=== PATIENT | female | born 1975 | race Two or more races ===

== ENCOUNTER 2023-05-12 18:23 | Emergency (ER) | payer MEDICAID, OTHER ==
[~2023-05-12] VITALS: Ht 167.6 cm; Wt 87.7 kg
[2023-05-12] MEDS ORDERED: ZOFR4T PO (21:19)
[2023-05-12 22:25] VITALS: BP 141/87; PULSE 87; RESP 20; TEMP 98.2; O2SAT 96
== END 2023-05-12 22:35 | disposition home or self-care (01) ==
LOC: EDBD 18:23 → ER 18:23
DX: R04.0 Epistaxis (principal); N18.6 End stage renal disease; Z99.2 Dependence on renal dialysis

== ENCOUNTER 2024-11-08 19:11 | Emergency (ER) | payer MEDICAID, MEDICARE ==
[~2024-11-08] VITALS: Ht 167.6 cm; Wt 90.0 kg
[~2024-11-08 19:11] MED LIST: ZOFR4T PO
[2024-11-08 19:16] VITALS: BP 132/73; PULSE 93; RESP 20; O2SAT 100
--- NOTE | 2024-11-08 20:18 | ED.PDOC ---
Back pain HPI HPI Comments 49-year-old Luxembourger-speaking female who presents with spouse for chief complaint of generalized body pain. Patient endorses a on 1 day history of symptoms following initial, unprovoked and atraumatic onset, yesterday, while at rest. Only significant history for diabetes, hypertension, and heart and kidney disease. Denies any numbness, tingling, chest pain, shortness of breath, or further associated symptoms. REVIEW OF SYSTEMS: General: No fever, no chills, or fatigue HEENT: No sore throat, no earache, no congestion, no neck pain. Cardiac: No chest pain. No palpitations. Lungs: No shortness of breath, no cough. GI: No nausea, no vomiting, no diarrhea, no constipation, no abdominal pain : No dysuria, frequency, or urgency. No hematuria. Musculoskeletal: Generalized body pain, no joint swelling, no extremity edema. Skin: No rash, no itching. Neuro: No headache, no dizziness, no weakness PHYSICAL EXAM: General: Awake, alert and oriented. No acute distress. Skin: Skin in warm, dry and intact. Appropriate color for ethnicity. HEENT: The head is normocephalic and atraumatic. Conjunctivae are clear without exudates or hemorrhage. Sclera is non-icteric. EOM are intact. No signs of nystagmus. Eyelids are normal in appearance without swelling or lesions. Oral mucosa is pink and moist Neck: The neck is supple with normal range of motion. No JVD. Cardiac: Heart rate and rhythm are normal. No murmurs, gallops, or rubs are auscultated. Respiratory: No signs of respiratory distress. Lung sounds are clear in all lobes bilaterally without rales, rhonchi, or wheezes. Abdominal: Abdomen is soft, non-tender without distention, guarding or rigidity. Bowel sounds are present and normoactive in all four quadrants. Musculoskeletal: Generalized tenderness. Extremities: Upper and lower extremities are atraumatic in appearance without deformity or edema. Neurological: The patient is awake, alert and oriented to person, place, and time with normal speech. Speech is clear. There is no facial asymmetry. Psychiatric: Appropriate mood and affect. Good judgement and insight. Chief Complaint: Body Pain Time Seen by MD: 20:00 Allergies: Coded Allergies: NO KNOWN ALLERGIES (Unverified , 05/12/23) Home Meds Active Scripts Ondansetron Odt 4MG Tab (ZOFRAN PO) 4 Mg Tb, 4 MG PO TID PRN, #10 TAB ODT TAB-DISSOLVE IN MOUTH, THEN SWALLOW Prov:BLAKE GUEVARA ROSE MARIE 05/12/23 Information Source: Patient Mode of Arrival: Wheelchair Past Medical History PAST MEDICAL HISTORY: DM, ESRD, HTN Past Medical History (Other): Unspecified heart and kidney disease. Surgical History: Denies all surgeries SOLUTION DEVELOPER History: No Pertinent SOLUTION DEVELOPER History Was a procedure done? Was a procedure done?: No Back Pain Differential Dx Differential Diagnosis: DJD, Fracture, Musculoskeletal Pain, Strain, Urolithiasis X-Ray, Labs, Meds, VS Vital Signs Date Time Temp Pulse Resp B/P (MAP) Pulse Ox O2 Delivery O2 Flow Rate FiO2 11/08/24 23:18 98.7 11/08/24 23:18 97.8 11/08/24 19:16 98.9 93 20 132/73 100 98.9 Lab Test 11/08/24 21:53 11/08/24 20:40 Range/Units Troponin I High Sensitivity 10 9 </=34 ng/L White Blood Count 7.0 4.4-10.8 10^3/uL Red Blood Count 2.50 L 4.0-5.20 10^6/uL Hemoglobin 7.6 L 12.2-16.2 g/dL Hematocrit 22.6 L 36.0-46.0 % Mean Corpuscular Volume 90.2 80.0-100.0 fL Mean Corpuscular Hemoglobin 30.2 28.0-32.0 pg Mean Corpuscular Hemoglobin Concent 33.5 32.0-36.0 g/dL Red Cell Distribution Width 19.0 H 11.8-14.3 % Platelet Count 93 L 140-450 10^3/uL Mean Platelet Volume 9.6 6.9-10.8 fL Neutrophils (%) (Auto) 84.8 H 37.0-80.0 % Lymphocytes (%) (Auto) 6.7 L 10.0-50.0 % Monocytes (%) (Auto) 7.8 0.0-12.0 % Eosinophils (%) (Auto) 0.0 0.0-7.0 % Basophils (%) (Auto) 0.7 0.0-2.0 % Neutrophils # (Auto) 5.9 1.6-8.6 10 ^3/uL Lymphocytes # (Auto) 0.5 0.4-5.4 10 ^3/uL Monocytes # (Auto) 0.5 0-1.3 10 ^3/uL Eosinophils # (Auto) 0 0-0.8 10 ^3/uL Basophils # (Auto) 0 0-0.2 10 ^3/uL Nucleated Red Blood Cells 0.0 % Platelet Estimate Decreased Anisocytosis (manual) Moderate Sodium Level 133 L 136-145 mmol/L Potassium Level 5.4 H 3.5-5.1 mmol/L Chloride Level 93 L 98-107 mmol/L Carbon Dioxide Level 24 20-31 mmol/L Anion Gap 16 H 5-15 Blood Urea Nitrogen 63 H 9-23 mg/dL Creatinine 7.82 H 0.550-1.02 mg/dL Glomerular Filtration Rate Calc 6 >90 mL/min BUN/Creatinine Ratio 8.1 L 10.0-20.0 Serum Glucose 246 H 74-106 mg/dL Calcium Level 8.4 L 8.7-10.4 mg/dL Magnesium Level 2.2 1.6-2.6 mg/dL Creatine Kinase 44 34-145 U/L C-Reactive Protein High Sensitivity 14.15 H <1.0 mg/dL Current Medications Medications (Trade) Dose Ordered Sig/Artemio Route Start Time Stop Time Status Last Admin Acetaminophen (Tylenol Tablet Or Capsule) 1,000 mg ONCE ONCE PO 11/08/24 20:15 11/08/24 20:16 DC 11/08/24 23:18 Ibuprofen (Motrin Tablet) 600 mg ONCE ONCE PO 11/08/24 20:15 11/08/24 20:16 DC 11/08/24 23:18 [place] [id number] Ph: [phone] DIAGNOSTIC IMAGING Diagnostic Imaging Report : [id number] Signed PATIENT: MARKUS NUÑEZ ACCT: [id number] UNIT: [id number] : 1975 LOC: ER ROOM / BED: / AGE / SEX: 49 / F ADM STATUS: REG ER SERVICE 01 ORDERING PHYSICIAN: MARII ROMERO MD PROCEDURE(s): CXR1 - CHEST XRAY 1 VIEW REASON: cp ORDER NUMBER(s): [id number], ACCESSION NUMBER(s): [id number] CHEST RADIOGRAPH Indication: cp Technique: 1 view Comparison: None FINDINGS: Lines and Tubes: None Lungs/Pleura: No focal consolidation, pleural effusion or pneumothorax. Cardiomediastinum: Unremarkable. Other: No acute osseous abnormality. IMPRESSION: 1. No acute cardiopulmonary abnormality. ATED BY: JOLENE HUDSON MD DICTATED DATE/TIME: 11/08/242031 SIGNED BY: JOLENE HUDSON MD SIGNED DATE/TIME: 11/08/242031 CC: Time of 1ST Reevaluation: 20:30 Reevaluation 1ST: Unchanged Patient Education/Counseling: Treatment, Need For Follow Up Family Education/Counseling: Treatment, Need For Follow Up SEPSIS Sepsis Screen Date sepsis recognized/suspect: Nov 08, 2024 Time Sepsis recognized/suspect: 1918 Recent Procedure: No On Antibiotic Therapy: No Respiratory Rate >20: No Heart Rate >90: Yes Temp<36 C (96.8 F) or >38.3 C: No SBP <90 or MAP <65 mmHG: No New Acute Mental Status Change: No Is the patient on CPAP, BIPAP,: No Physician Orders Urinalysis (11/08/24 20:02) Chest Xray 1 View (11/08/24 20:02) Electrocardigram (11/08/24 20:02) Electrocardigram (11/08/24 21:02) Electrocardigram (11/08/24 23:02) Stool Occult Blood (11/08/24 21:12) Vital Signs Date Time Temp Pulse Resp B/P (MAP) Pulse Ox O2 Delivery O2 Flow Rate FiO2 11/08/24 23:18 98.7 11/08/24 23:18 97.8 11/08/24 19:16 98.9 93 20 132/73 100 98.9 Laboratory Tests Test 11/08/24 20:40 White Blood Count 7.0 10^3/uL (4.4-10.8) Medications Medications Dose Ordered Sig/Artemio Route Start Time Stop Time Status Last Admin Dose Admin Acetaminophen 1,000 mg ONCE ONCE PO 11/08/24 20:15 11/08/24 20:16 DC 11/08/24 23:18 Ibuprofen 600 mg ONCE ONCE PO 11/08/24 20:15 11/08/24 20:16 DC 11/08/24 23:18 Departure 1 Departure Time of Disposition: 22:20 Impression: Primary Impression: Severe anemia Additional Impressions: Thrombocytopenia CARMEL (acute kidney injury) Disposition: ADMITTED INPATIENT Condition: Stable Comments MDM: Recommended Patient be admitted to hospitalist service for further treatment, evaluation and monitoring. Patient Eloped from the ED with her . Extensive evaluation was performed in attempt to identify or rule out: (See differential diagnosis section) The following tests were ordered, and results were reviewed by me and discussed with patient: (See diagnostic results section) The following test were independently interpreted by me: N/A I reviewed and agreed with the following test results read by other providers: Chest x-ray I reviewed the following notes from the pt's past medical encounters: July 12, 2023 encounter for epistaxis Additional information was gathered from interviewing the following independent historians: Discussion of management or test interpretation with external physician/other qualified health patient care assistant: N/A Decision regarding hospitalization or escalation of hospital level of care: Risk and benefits of admission for further treatment of patient's condition was considered. Due to patient's current clinical condition, high risk of decline and poor outcome if discharged and need for further inpatient management and monitoring, patient will be admitted to the hospital. Critical Care Note Critical Care Time?: No Stability Stability form required: No Heart Score Heart Score: Heart Score Response (Comments) Value History N/A 0 EKG N/A 0 Age N/A 0 Risk Factors N/A 0 Troponin N/A 0 Total 0 I personally scribed for MARII ROMERO MD ([email or web address]) on 11/08/24 at 20:18. Electronically submitted by Jesus Warner ([email or web address]). I personally scribed for MARII ROMERO MD ([email or web address]) on 11/08/24 at 20:52. Electronically submitted by Jesus Warner ([email or web address]). MARII ROMERO MD Nov 08, 2024 20:18
--- NOTE | 2024-11-08 20:34 | DVH ---
CHEST RADIOGRAPH Indication: cp Technique: 1 view Comparison: None FINDINGS: Lines and Tubes: None Lungs/Pleura: No focal consolidation, pleural effusion or pneumothorax. Cardiomediastinum: Unremarkable. Other: No acute osseous abnormality. IMPRESSION: 1. No acute cardiopulmonary abnormality.
[2024-11-08 20:54] LABS: Hematocrit 22.6 % (36.0-46.0); Hemoglobin 7.6 g/dL (12.2-16.2); Mean Corpuscular Hemoglobin 30.2 pg (28.0-32.0); Mean Corpuscular Volume 90.2 fL (80.0-100.0); Nucleated Red Blood Cells % 0.0 %
[2024-11-08 21:04] LABS: Anion Gap 16 (5-15); Carbon Dioxide 24 mmol/L (20-31)
[2024-11-08 21:09] LABS: BUN/Creatinine Ratio 8.1 (10.0-20.0)
[2024-11-08 21:11] LABS: Creatine Kinase IFCC 44 U/L (34-145)
[2024-11-08 21:33] LABS: Blood Urea Nitrogen 63 mg/dL (9-23); Calcium 8.4 mg/dL (8.7-10.4); Chloride 93 mmol/L (98-107); Glucose 246 mg/dL (74-106); Potassium 5.4 mmol/L (3.5-5.1); Sodium 133 mmol/L (136-145)
[2024-11-08 21:42] LABS: Magnesium 2.2 mg/dL (1.6-2.6)
[2024-11-08 21:44] LABS: Anisocytosis Moderate
[2024-11-08] MEDS ORDERED: SODIUM CHLORIDE 0.9% 1,000 ML IV ONE (22:30)
[2024-11-08 23:18] VITALS: TEMP 98.7
[2024-11-08] MEDS: ACETAMINOPHEN 500 MG TAB or CAP PO ONE (23:18)
[2024-11-08] MEDS: IBUPROFEN 600 MG TAB PO ONE (23:18)
== END 2024-11-09 00:10 | disposition left against medical advice (07) ==
LOC: ER 19:11
DX: D64.9 Anemia, unspecified (principal); D69.6 Thrombocytopenia, unspecified; I12.0 Hypertensive chronic kidney disease with stage 5 chronic kidney disease or end stage renal disease; E11.22 Type 2 diabetes mellitus with diabetic chronic kidney disease; N17.9 Acute kidney failure, unspecified; N18.6 End stage renal disease
CPT/HCPCS: 36415; 71045; 80048; 82550; 83735; 84484; 85025; 86141